=== PATIENT | female | born 1990 | race Caucasian/White ===

== ENCOUNTER 2018-07-31 17:36 | Inpatient (IN) | payer OTHER ==
[2018-07-31] MEDS ORDERED: Nalbuphine 20 MG/ML 1 ML Syringe IVPUSH PRN (17:53)
[2018-07-31] MEDS ORDERED: Sodium Chloride 0.9% 10 ML Syringe FLUSH PRN (17:53)
[2018-07-31] MEDS ORDERED: Ondansetron 4 MG/2 ML SDV IVPUSH PRN ×2 (17:53→18:37)
[2018-07-31] MEDS ORDERED: Oxytocin/Lactated Ringers 10 UNIT/1,000 ML BAG IV SCH (18:00)
[2018-07-31] MEDS: Lactated Ringers 1,000 ML IV SCH ×4 (18:30→20:29)
[2018-07-31] MEDS ORDERED: fentaNYL 100 MCG/2 ML SDV EPIDUR PRN (18:37)
[2018-07-31] MEDS ORDERED: ePHEDrine 50 MG/ML SDV IVPUSH PRN (18:37)
--- NOTE | 2018-07-31 18:41 | PCM.PREANE ---
Preanesthetic Assessment - Anesthesia/Transfusion/Family Hx Anesthesia History: Prior Anesthesia Without Reaction Family History of Anesthesia Reaction: No Transfusion History: No Prior Transfusion(s) Intubation History: Unknown - Review of Systems General: No Symptoms Pulmonary: No Symptoms Cardiovascular: No Symptoms Gastrointestinal: No Symptoms, Constipation Neurological: No Symptoms Other: Reports: None - Physical Assessment NPO Status Date: 07/31/18 NPO Status Time: 19:20 Pulse: 91 O2 Sat by Pulse Oximetry: 99 Respiratory Rate: 20 Blood Pressure: 142/92 Temperature: 36.5 C Height: 1.65 m Weight: 79.832 kg ASA Class: 2 Mental Status: Alert & Oriented x3 Airway Class: Mallampati = 1 Dentition: Reports: Normal Dentition, Caries Thyro-Mental Finger Breadths: 3 Mouth Opening Finger Breadths: 3 ROM/Head Extension: Full Lungs: Clear to Auscultation, Normal Respiratory Effort Cardiovascular: Regular Rate, Regular Rhythm, No Murmurs - Lab Values: Laboratory Last Values WBC 12.68 K/mm3 (3.98-10.04) H 07/31/18 18:06 RBC 4.44 M/mm3 (3.98-5.22) 07/31/18 18:06 Hgb 12.9 gm/L (11.2-15.7) 07/31/18 18:06 Hct 38.1 % (34.1-44.9) 07/31/18 18:06 MCV 85.8 fl (79.4-94.8) 07/31/18 18:06 MCH 29.1 pg (25.6-32.2) 07/31/18 18:06 MCHC 33.9 g/dl (32.2-35.5) 07/31/18 18:06 RDW Std Deviation 37.3 fL (36.4-46.3) 07/31/18 18:06 Plt Count 324 K/mm3 (182-369) 07/31/18 18:06 MPV 11.0 fl (9.4-12.3) 07/31/18 18:06 Neut % (Auto) 71.2 % (34.0-71.1) H 07/31/18 18:06 Lymph % (Auto) 19.8 % (19.3-51.7) 07/31/18 18:06 [place] % (Auto) 7.9 % (4.7-12.5) 07/31/18 18:06 Eos % (Auto) 0.6 (0.7-5.8) L 07/31/18 18:06 Baso % (Auto) 0.2 % (0.1-1.2) 07/31/18 18:06 Neut # (Auto) 9.03 K/mm3 (1.56-6.13) H 07/31/18 18:06 Lymph # (Auto) 2.51 K/mm3 (1.18-3.74) 07/31/18 18:06 [place] # (Auto) 1.00 K/mm3 (0.24-0.36) H 07/31/18 18:06 Eos # (Auto) 0.07 K/mm3 (0.04-0.36) 07/31/18 18:06 Baso # (Auto) 0.03 K/mm3 (0.01-0.08) 07/31/18 18:06 Above labs reviewed and noted and within acceptable ranges to proceed with epidural. 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: - Past Surgical History HEENT Surgical History: Reports: Tonsillectomy - HOME MEDS Home Medications: Home Meds Lansoprazole [Prevacid] 06/20/16 [History] Vit 90/Iron Fum/Folic [ Formula] 1 tab PO DAILY 06/20/16 [ History] Acetaminophen [Tylenol] 650 mg PO Q4H PRN #0 tablet 06/21/16 [Rx] Docusate Sodium [Colace] 100 mg PO BID PRN #0 cap 06/21/16 [Rx] Ibuprofen [IJD: Ibuprofen] 600 mg PO Q4H PRN #0 tablet 06/21/16 [Rx] - CURRENT (IN HOUSE) MEDS Current Meds: Current Medications Ephedrine Sulfate (Ephedrine Sulfate) 5 mg IVPUSH ASDIRECTED PRN PRN Reason: Hypotension Fentanyl (Sublimaze) 100 mcg EPIDUR Q3H PRN PRN Reason: Pain Fentanyl/Bupivacaine HCl (Fentanyl/Bupivacaine/Ns 2 Mcg-0.125% 100 Ml) 100 ml EPIDUR ASDIRECTED RUDY Lactated Ringer's (Ringers, Lactated) 1,000 mls @ 100 mls/hr IV ASDIRECTED RUDY Oxytocin/Lactated Ringer's (Pitocin In Lr 10 Units/1,000 Ml) 10 unit in 1,000 mls @ 500 mls/hr IV .CONTINUOUS RUDY Phenylephrine HCl 1 mg/ Sodium (Chloride) 10.1 mls @ 1 mls/sec IV TITRATE RUDY; Protocol Nalbuphine HCl (Nubain) 10 mg IVPUSH Q2H PRN PRN Reason: pain Ondansetron HCl (Zofran) 4 mg IVPUSH Q4H PRN PRN Reason: Nausea/Vomiting Ondansetron HCl (Zofran) 4 mg IVPUSH ONETIME PRN PRN Reason: Nausea/Vomiting Sodium Chloride (Saline Flush) 10 ml FLUSH ASDIRECTED PRN PRN Reason: Keep Vein Open
[2018-07-31] MEDS ORDERED: Bupivacaine/fentaNYL/NS 100 ML Bag EPIDUR SCH (18:45)
[2018-07-31] MEDS ORDERED: Phenylephrine 1 MG in Sodium Chloride 0.9% 10 ML IV SCH (18:45)
--- NOTE | 2018-07-31 18:59 | PCM.LDHP ---
L&D History of Present Illness - General Date of Service: 07/31/18 Admit Problem/Dx: Patient Status Order with Admit Dx/Problem 07/31/18 17:54 Patient Status [ADT] Routine Admission Diagnosis/Problem Admission Diagnosis/Problem Normal labor Source of Information: Patient History Limitations: Reports: No Limitations - History of Present Illness Introduction:: Patient is a 28 y/o at 37 4/7 wks who presents today in labor/SROM. 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 Para: 1 LMP (Approximate): Endocrine/Metabolic History: Reports: Other (See Below) (Failed 1hr - did not complete 3hr testing) - Past Surgical History HEENT Surgical History: Reports: Tonsillectomy Social & Family History - Family History Family Medical History: Noncontributory - Tobacco Use Smoking Status *Q: Former Smoker Used Tobacco, but Quit: Yes Month/Year Tobacco Last Used: 2011 Second Hand Smoke Exposure: No - Alcohol Use Alcohol Use History: No - Recreational Drug Use Recreational Drug Use: No H&P Review of Systems - Review of Systems: Review Of Systems: See Below General: Reports: No Symptoms Pulmonary: Reports: No Symptoms Cardiovascular: Reports: No Symptoms Gastrointestinal: Reports: No Symptoms Genitourinary: Reports: No Symptoms Musculoskeletal: Reports: No Symptoms L&D Exam - Exam Exam: See Below - Vital Signs Weight: 84.368 kg - OB Specific Contraction Intensity: Moderate Movement: Active Heart Tones: Present Heart Tones per Min: 125 Heart Rate (FHR) Variability: Moderate (6-25 bmp) Presentation: Vertex - Elkins Score Elkins Score Dilation: 3-4 cm (per nursing) - Exam General: Alert, Oriented, Cooperative Lungs: Clear to Auscultation, Normal Respiratory Effort Cardiovascular: Regular Rate, Regular Rhythm GI/Abdominal Exam: Soft, Non-Tender Genitourinary: Normal external exam Extremities: Normal Inspection Skin: Warm, Dry, Intact - Patient Data Lab Results Last 24 hrs: Laboratory Results - last 24 hr 07/31/18 Range/Units 18:06 WBC 12.68 H (3.98-10.04) K/mm3 RBC 4.44 (3.98-5.22) M/mm3 Hgb 12.9 (11.2-15.7) gm/L Hct 38.1 (34.1-44.9) % MCV 85.8 (79.4-94.8) fl MCH 29.1 (25.6-32.2) pg MCHC 33.9 (32.2-35.5) g/dl RDW Std Deviation 37.3 (36.4-46.3) fL Plt Count 324 (182-369) K/mm3 MPV 11.0 (9.4-12.3) fl Neut % (Auto) 71.2 H (34.0-71.1) % Lymph % (Auto) 19.8 (19.3-51.7) % [place] % (Auto) 7.9 (4.7-12.5) % Eos % (Auto) 0.6 L (0.7-5.8) Baso % (Auto) 0.2 (0.1-1.2) % Neut # (Auto) 9.03 H (1.56-6.13) K/mm3 Lymph # (Auto) 2.51 (1.18-3.74) K/mm3 [place] # (Auto) 1.00 H (0.24-0.36) K/mm3 Eos # (Auto) 0.07 (0.04-0.36) K/mm3 Baso # (Auto) 0.03 (0.01-0.08) K/mm3 Result Diagrams: 07/31/18 18:06 - Problem List (1) 37 weeks gestation of SNOMED Code(s): 93601161 ICD Code: Z3A.37 - 37 WEEKS GESTATION OF Status: Acute Current Visit: Yes (2) SROM (spontaneous rupture of membranes) SNOMED Code(s): 252646997 ICD Code: AWH2187 - Status: Acute Current Visit: Yes Problem List Initiated/Reviewed/Updated: Yes Orders Last 24hrs: Active Orders 24 hr Category Date Time Status Patient Status [ADT] Routine ADT 07/31/18 17:54 Active Activity as Tolerated [RC] PFP Care 07/31/18 17:53 Active Communication Order [RC] ASDIRECTED Care 07/31/18 17:53 Active Heart Tones [RC] ASDIRECTED Care 07/31/18 17:54 Active Non Stress Test [RC] PER UNIT ROUTINE Care 07/31/18 17:53 Active Notify Provider [RC] ASDIRECTED Care 07/31/18 18:37 Active Notify Provider [RC] PFP Care 07/31/18 17:53 Active Notify Provider [RC] PRN Care 07/31/18 17:53 Active Oxygen Therapy [RC] ASDIRECTED Care 07/31/18 18:37 Active Peripheral IV Care [RC] . DIRECTED Care 07/31/18 17:54 Active Pulse Oximetry [RC] ASDIRECTED Care 07/31/18 18:37 Active Pump Management, Intrathecal [RC] ASDIRECTED Care 07/31/18 17:55 Active Urinary Catheter Assessment [RC] ASDIRECTED Care 07/31/18 17:53 Active Vital Signs [RC] PER UNIT ROUTINE Care 07/31/18 17:53 Active Regular Diet [DIET] Diet 07/31/18 Dinner Active RAPID PLASMA REAGIN,RPR [CHEM] Routine Lab 07/31/18 18:06 Received TYPE AND SCREEN [BBK] Stat Lab 07/31/18 18:06 Received Bupivacaine/fentaNYL/NS [fentaNYL/Bupivacaine/NS 2 MCG- Med 07/31/18 18:45 Active 0.125% 100 ML] 100 ml EPIDUR ASDIRECTED Lactated Ringers [Ringers, Lactated] 1,000 ml Med 07/31/18 18:00 Active IV ASDIRECTED Nalbuphine [Nubain] Med 07/31/18 17:53 Active 10 mg IVPUSH Q2H PRN Ondansetron [Zofran] Med 07/31/18 18:37 Active 4 mg IVPUSH ONETIME PRN Ondansetron [Zofran] Med 07/31/18 17:53 Active 4 mg IVPUSH Q4H PRN Oxytocin/Lactated Ringers [Pitocin in LR 10 Units/1,000 Med 07/31/18 18:00 Active ML] 10 unit in 1,000 ml IV .CONTINUOUS Phenylephrine [[place]-Synephrine] 1 mg Med 07/31/18 18:45 Active Sodium Chloride 0.9% [Normal Saline] 10 ml IV TITRATE Sodium Chloride 0.9% [Saline Flush] Med 07/31/18 17:53 Active 10 ml FLUSH ASDIRECTED PRN ePHEDrine [ePHEDrine Sulfate] Med 07/31/18 18:37 Active 5 mg IVPUSH ASDIRECTED PRN fentaNYL [Sublimaze] Med 07/31/18 18:37 Active 100 mcg EPIDUR Q3H PRN Electronic Heart Tones Ext w TOCO [WOMSER] Oth 07/31/18 17:53 Ordered Routine Electronic Heart Tones Internal [WOMSER] Per Unit Oth 07/31/18 17:53 Ordered Routine Peripheral IV Insertion Adult [OM.PC] Routine Oth 07/31/18 17:53 Ordered Resuscitation Status Routine Resus Stat 07/31/18 17:53 Ordered Medication Orders Ephedrine Sulfate (Ephedrine Sulfate) 5 mg IVPUSH ASDIRECTED PRN PRN Reason: Hypotension Fentanyl (Sublimaze) 100 mcg EPIDUR Q3H PRN PRN Reason: Pain Fentanyl/Bupivacaine HCl (Fentanyl/Bupivacaine/Ns 2 Mcg-0.125% 100 Ml) 100 ml EPIDUR ASDIRECTED RUDY Lactated Ringer's (Ringers, Lactated) 1,000 mls @ 100 mls/hr IV ASDIRECTED RUDY Oxytocin/Lactated Ringer's (Pitocin In Lr 10 Units/1,000 Ml) 10 unit in 1,000 mls @ 500 mls/hr IV .CONTINUOUS RUDY Phenylephrine HCl 1 mg/ Sodium (Chloride) 10.1 mls @ 1 mls/sec IV TITRATE RUDY; Protocol Nalbuphine HCl (Nubain) 10 mg IVPUSH Q2H PRN PRN Reason: pain Ondansetron HCl (Zofran) 4 mg IVPUSH Q4H PRN PRN Reason: Nausea/Vomiting Ondansetron HCl (Zofran) 4 mg IVPUSH ONETIME PRN PRN Reason: Nausea/Vomiting Sodium Chloride (Saline Flush) 10 ml FLUSH ASDIRECTED PRN PRN Reason: Keep Vein Open Assessment/Plan Comment:: 28 y/o at 37 4/7 wks presents with labor/srom * Labs on admission * GBS negative, no need for antibiotics * Epidural per patient preference * Anticipate
[2018-07-31] MEDS ORDERED: Bupivacaine 0.25% 10 ML SDV ONE (22:00)
--- NOTE | 2018-07-31 22:21 | PCM.PNLD ---
Labor Progress Note - VS & Meds Vital Signs: Last Vital Signs Temp 36.5 C 07/31/18 18:56 Pulse 78 07/31/18 19:00 Resp 20 07/31/18 18:56 BP 142/92 H 07/31/18 18:56 Pulse Ox 100 07/31/18 19:00 Active Medications: Current Medications Ephedrine Sulfate (Ephedrine Sulfate) 5 mg IVPUSH ASDIRECTED PRN PRN Reason: Hypotension Fentanyl (Sublimaze) 100 mcg EPIDUR Q3H PRN PRN Reason: Pain Last Admin: 07/31/18 18:57 Dose: 100 mcg Fentanyl/Bupivacaine HCl (Fentanyl/Bupivacaine/Ns 2 Mcg-0.125% 100 Ml) 100 ml EPIDUR ASDIRECTED RUDY Last Admin: 07/31/18 18:57 Dose: 100 ml Lactated Ringer's (Ringers, Lactated) 1,000 mls @ 100 mls/hr IV ASDIRECTED RUDY Last Admin: 07/31/18 20:29 Dose: 999 mls/hr Oxytocin/Lactated Ringer's (Pitocin In Lr 10 Units/1,000 Ml) 10 unit in 1,000 mls @ 500 mls/hr IV .CONTINUOUS RUDY Phenylephrine HCl 1 mg/ Sodium (Chloride) 10.1 mls @ 1 mls/sec IV TITRATE RUDY; Protocol Nalbuphine HCl (Nubain) 10 mg IVPUSH Q2H PRN PRN Reason: pain Ondansetron HCl (Zofran) 4 mg IVPUSH Q4H PRN PRN Reason: Nausea/Vomiting Ondansetron HCl (Zofran) 4 mg IVPUSH ONETIME PRN PRN Reason: Nausea/Vomiting Sodium Chloride (Saline Flush) 10 ml FLUSH ASDIRECTED PRN PRN Reason: Keep Vein Open - Uterine Contractions Uterine Monitoring Mode: External [place] Contraction Intensity: Moderate - Monitoring Monitor Mode: External Ultrasound Heart Rate (FHR) Baseline: 140 Heart Rate (FHR) Variability: Moderate (6-25 bmp) Accelerations: Present, 15x15 Decelerations: None Strip Review: Category I - Vaginal Exam Dilation (cm): 5-6 Effacement (Percent): 90 Station: 0 Cervical Position: Midposition - Labor Progress (Free Text) Labor Progress: Doing well. Comfortable with epidural. Continue present management
--- NOTE | 2018-08-01 00:19 | PCM.DEL ---
L & D Note - General Info Date of Service: 08/01/18 - Delivery Note Labor: Spontaneous Delivery Outcome: Livebirth Delivery Method: Spontaneous Vaginal Delivery-Single Delivery Mode: Spontaneous Presentation: Left Occiput Anterior (YAYA) Nuchal Cord: Present (Tight, not able to be reduced) Anesthesia Type: Epidural Amniotic Fluid Description: Clear Episiotomy Type: None Laceration: None Placenta: Intact, Spontaneous Cord: 3 Vessels Estimated Blood Loss: 300 Resuscitation Needed: Yes : Bulb Syringe, Stimulated, Warmed, [place] Used, Warmer Used Score 1 min: 9 Score 5 min: 9 Delivery Comments (Free Text/Narrative):: Patient found to be complete and began pushing. With maternal pushing effort head delivered from an YAYA presentation. Tight nuchal cord present. Not able to be reduced. With gentle downward traction the shoulders and body delivered. Infant placed on maternal abdomen. Cord clamped and cut. Cord blood obtained. Placenta allowed time to separate and expelled intact. Inspection of the perineum showed no lacerations - General Info Date of Service: 07/31/18 - Patient Data Vitals - Most Recent: Last Vital Signs Temp 36.5 C 07/31/18 18:56 Pulse 78 07/31/18 19:00 Resp 20 07/31/18 18:56 BP 142/92 H 07/31/18 18:56 Pulse Ox 100 07/31/18 19:00 Weight - Most Recent: 84.368 kg I&O - Last 24 Hours: Intake & Output 07/31/18 07/31/18 08/01/18 14:59 22:59 06:59 Intake Total 2000 250 Output Total 700 Balance 2000 -450 Lab Results Last 24 Hours: Laboratory Results - last 24 hr 07/31/18 07/31/18 Range/Units 18:06 18:06 WBC 12.68 H (3.98-10.04) K/mm3 RBC 4.44 (3.98-5.22) M/mm3 Hgb 12.9 (11.2-15.7) gm/L Hct 38.1 (34.1-44.9) % MCV 85.8 (79.4-94.8) fl MCH 29.1 (25.6-32.2) pg MCHC 33.9 (32.2-35.5) g/dl RDW Std Deviation 37.3 (36.4-46.3) fL Plt Count 324 (182-369) K/mm3 MPV 11.0 (9.4-12.3) fl Neut % (Auto) 71.2 H (34.0-71.1) % Lymph % (Auto) 19.8 (19.3-51.7) % [place] % (Auto) 7.9 (4.7-12.5) % Eos % (Auto) 0.6 L (0.7-5.8) Baso % (Auto) 0.2 (0.1-1.2) % Neut # (Auto) 9.03 H (1.56-6.13) K/mm3 Lymph # (Auto) 2.51 (1.18-3.74) K/mm3 [place] # (Auto) 1.00 H (0.24-0.36) K/mm3 Eos # (Auto) 0.07 (0.04-0.36) K/mm3 Baso # (Auto) 0.03 (0.01-0.08) K/mm3 Blood Type O POSITIVE Gel Antibody Screen Negative Med Orders - Current: Current Medications Ephedrine Sulfate (Ephedrine Sulfate) 5 mg IVPUSH ASDIRECTED PRN PRN Reason: Hypotension Fentanyl (Sublimaze) 100 mcg EPIDUR Q3H PRN PRN Reason: Pain Last Admin: 07/31/18 18:57 Dose: 100 mcg Fentanyl/Bupivacaine HCl (Fentanyl/Bupivacaine/Ns 2 Mcg-0.125% 100 Ml) 100 ml EPIDUR ASDIRECTED RUDY Last Admin: 07/31/18 18:57 Dose: 100 ml Lactated Ringer's (Ringers, Lactated) 1,000 mls @ 100 mls/hr IV ASDIRECTED RUDY Last Admin: 07/31/18 20:29 Dose: 999 mls/hr Oxytocin/Lactated Ringer's (Pitocin In Lr 10 Units/1,000 Ml) 10 unit in 1,000 mls @ 500 mls/hr IV .CONTINUOUS RUDY Last Admin: 07/31/18 23:48 Dose: 500 mls/hr Phenylephrine HCl 1 mg/ Sodium (Chloride) 10.1 mls @ 1 mls/sec IV TITRATE RUDY; Protocol Nalbuphine HCl (Nubain) 10 mg IVPUSH Q2H PRN PRN Reason: pain Ondansetron HCl (Zofran) 4 mg IVPUSH Q4H PRN PRN Reason: Nausea/Vomiting Ondansetron HCl (Zofran) 4 mg IVPUSH ONETIME PRN PRN Reason: Nausea/Vomiting Sodium Chloride (Saline Flush) 10 ml FLUSH ASDIRECTED PRN PRN Reason: Keep Vein Open - Problem List & Annotations (1) 37 weeks gestation of SNOMED Code(s): 89437922 Code(s): Z3A.37 - 37 WEEKS GESTATION OF Status: Acute Current Visit: Yes (2) SROM (spontaneous rupture of membranes) SNOMED Code(s): 419477763 Code(s): PWJ6479 - Status: Acute Current Visit: Yes - Problem List Review Problem List Initiated/Reviewed/Updated: Yes - My Orders Last 24 Hours: My Active Orders 07/31/18 17:53 Activity as Tolerated [RC] PFP Communication Order [RC] ASDIRECTED Notify Provider [RC] PFP Notify Provider [RC] PRN Urinary Catheter Assessment [RC] ASDIRECTED Vital Signs [RC] PER UNIT ROUTINE Nalbuphine [Nubain] 10 mg IVPUSH Q2H PRN Ondansetron [Zofran] 4 mg IVPUSH Q4H PRN Sodium Chloride 0.9% [Saline Flush] 10 ml FLUSH ASDIRECTED PRN Electronic Heart Tones Ext w TOCO [WOMSER] Routine Electronic Heart Tones Internal [WOMSER] Per Unit Routine Peripheral IV Insertion Adult [OM.PC] Routine Resuscitation Status Routine 07/31/18 17:54 Patient Status [ADT] Routine Peripheral IV Care [RC] . DIRECTED 07/31/18 17:55 Pump Management, Intrathecal [RC] ASDIRECTED 07/31/18 18:00 Lactated Ringers [Ringers, Lactated] 1,000 ml IV ASDIRECTED Oxytocin/Lactated Ringers [Pitocin in LR 10 Units/1,000 ML] 10 unit in 1,000 ml IV .CONTINUOUS 07/31/18 18:06 RAPID PLASMA REAGIN,RPR [CHEM] Routine 07/31/18 Dinner Regular Diet [DIET] - Assessment Assessment:: 28 y/o G2 now P2002 PPD#0 from - Plan Plan:: * Routine cares * Encourage breast feeding * Discharge home in 1-2 days
[2018-08-01] MEDS ORDERED: Docusate Sodium 100 MG Cap PO PRN (01:02)
[2018-08-01] MEDS ORDERED: Acetaminophen 325 MG Tab PO PRN (01:02)
[2018-08-01] MEDS ORDERED: Lanolin 100% Cream 7 GM Tube TOP PRN (01:02)
[2018-08-01] MEDS ORDERED: Witch Hazel Medicated Pads 100/Jar TOP PRN (01:02)
[2018-08-01] MEDS ORDERED: Benzocaine/Menthol 20%-0.5% Spray 56 GM Canister TOP PRN (01:02)
[2018-08-01] MEDS: Ibuprofen 600 MG Tab PO PRN ×4 (01:18→20:40)
--- NOTE | 2018-08-01 07:10 | PCM.PNPP ---
- General Info Date of Service: 08/01/18 Functional Status: Reports: Pain Controlled, Tolerating Diet, Ambulating, Urinating - Review of Systems General: Reports: No Symptoms Pulmonary: Reports: No Symptoms Cardiovascular: Reports: No Symptoms Gastrointestinal: Reports: No Symptoms Genitourinary: Reports: No Symptoms Musculoskeletal: Reports: No Symptoms Neurological: Reports: No Symptoms - Patient Data Vital Signs - Most Recent: Last Vital Signs Temp 36.7 C 08/01/18 04:58 Pulse 75 08/01/18 04:58 Resp 15 08/01/18 04:58 BP 120/67 08/01/18 04:58 Pulse Ox 99 08/01/18 04:58 Weight - Most Recent: 84.368 kg I&O - Last 24 Hours: Intake & Output 07/31/18 08/01/18 08/01/18 22:59 06:59 14:59 Intake Total 2000 250 Output Total 700 Balance 2000 -450 Lab Results - Last 24 Hours: Laboratory Results - last 24 hr 07/31/18 07/31/18 Range/Units 18:06 18:06 WBC 12.68 H (3.98-10.04) K/mm3 RBC 4.44 (3.98-5.22) M/mm3 Hgb 12.9 (11.2-15.7) gm/L Hct 38.1 (34.1-44.9) % MCV 85.8 (79.4-94.8) fl MCH 29.1 (25.6-32.2) pg MCHC 33.9 (32.2-35.5) g/dl RDW Std Deviation 37.3 (36.4-46.3) fL Plt Count 324 (182-369) K/mm3 MPV 11.0 (9.4-12.3) fl Neut % (Auto) 71.2 H (34.0-71.1) % Lymph % (Auto) 19.8 (19.3-51.7) % [place] % (Auto) 7.9 (4.7-12.5) % Eos % (Auto) 0.6 L (0.7-5.8) Baso % (Auto) 0.2 (0.1-1.2) % Neut # (Auto) 9.03 H (1.56-6.13) K/mm3 Lymph # (Auto) 2.51 (1.18-3.74) K/mm3 [place] # (Auto) 1.00 H (0.24-0.36) K/mm3 Eos # (Auto) 0.07 (0.04-0.36) K/mm3 Baso # (Auto) 0.03 (0.01-0.08) K/mm3 Blood Type O POSITIVE Gel Antibody Screen Negative Med Orders - Current: Current Medications Acetaminophen (Tylenol) 650 mg PO Q4H PRN PRN Reason: mild pain or fever Last Admin: 08/01/18 05:01 Dose: 650 mg Benzocaine/Menthol (Dermoplast Pain Relief [place]) 0 gm TOP ASDIRECTED PRN PRN Reason: Perineal Comfort Measure Last Admin: 08/01/18 01:49 Dose: 1 canister Docusate Sodium (Colace) 100 mg PO BID PRN PRN Reason: Constipation Emollient Ointment (Lansinoh Hpa) 0 gm TOP ASDIRECTED PRN PRN Reason: Sore Nipples Ibuprofen (Motrin) 600 mg PO Q6H PRN PRN Reason: Mild pain or fever Last Admin: 08/01/18 01:18 Dose: 600 mg [place] (Tucks) 1 pad TOP ASDIRECTED PRN PRN Reason: Hemorrhoid pain Discontinued Medications Ephedrine Sulfate (Ephedrine Sulfate) 5 mg IVPUSH ASDIRECTED PRN PRN Reason: Hypotension Fentanyl (Sublimaze) 100 mcg EPIDUR Q3H PRN PRN Reason: Pain Last Admin: 07/31/18 18:57 Dose: 100 mcg Fentanyl/Bupivacaine HCl (Fentanyl/Bupivacaine/Ns 2 Mcg-0.125% 100 Ml) 100 ml EPIDUR ASDIRECTED RUDY Last Admin: 07/31/18 18:57 Dose: 100 ml Lactated Ringer's (Ringers, Lactated) 1,000 mls @ 100 mls/hr IV ASDIRECTED RUDY Last Admin: 07/31/18 20:29 Dose: 999 mls/hr Oxytocin/Lactated Ringer's (Pitocin In Lr 10 Units/1,000 Ml) 10 unit in 1,000 mls @ 500 mls/hr IV .CONTINUOUS RUDY Last Admin: 07/31/18 23:48 Dose: 500 mls/hr Phenylephrine HCl 1 mg/ Sodium (Chloride) 10.1 mls @ 1 mls/sec IV TITRATE RUDY; Protocol Nalbuphine HCl (Nubain) 10 mg IVPUSH Q2H PRN PRN Reason: pain Ondansetron HCl (Zofran) 4 mg IVPUSH Q4H PRN PRN Reason: Nausea/Vomiting Ondansetron HCl (Zofran) 4 mg IVPUSH ONETIME PRN PRN Reason: Nausea/Vomiting Sodium Chloride (Saline Flush) 10 ml FLUSH ASDIRECTED PRN PRN Reason: Keep Vein Open - Infant Interaction Infant Disposition, : in Room with Family Interaction: Holding Infant Infant Feeding: Breastfed ; Nursed Well Support Person: - Recovery Exam Fundal Tone: Firm Fundal Level: At Umbilicus Fundal Placement: Midline Lochia Amount: Small Lochia Color: Rubra/Red Perineum Description: Intact, Minimal Bruising/Swelling Bladder Status: Voiding Urinary Elimination: Voided - Exam General: Alert, Oriented, Cooperative GI/Abdominal Exam: Soft, Non-Tender Extremities: Normal Inspection Skin: Warm, Dry, Intact - Problem List & Annotations (1) 37 weeks gestation of SNOMED Code(s): 95460499 Code(s): Z3A.37 - 37 WEEKS GESTATION OF Status: Acute Current Visit: Yes (2) SROM (spontaneous rupture of membranes) SNOMED Code(s): 952918063 Code(s): KUQ1051 - Status: Acute Current Visit: Yes - Problem List Review Problem List Initiated/Reviewed/Updated: Yes - My Orders Last 24 Hours: My Active Orders 07/31/18 17:53 Resuscitation Status Routine 07/31/18 18:06 RAPID PLASMA REAGIN,RPR [CHEM] Routine 08/01/18 01:02 Activity as Tolerated [RC] PER UNIT ROUTINE Vital Signs [RC] 03,09,15,21 Acetaminophen [Tylenol] 650 mg PO Q4H PRN Benzocaine/Menthol [Dermoplast Pain Relief [place]] See Dose Instructions TOP ASDIRECTED PRN Docusate Sodium [Colace] 100 mg PO BID PRN Ibuprofen [Motrin] 600 mg PO Q6H PRN Lanolin [Lansinoh HPA] See Dose Instructions TOP ASDIRECTED PRN [place] [Tucks] 1 pad TOP ASDIRECTED PRN Assess Lochia [WOMSER] Per Unit Routine Assess Uterine Involution [WOMSER] Per Unit Routine Breast Pump [WOMSER] Per Unit Routine Heat Therapy [OM.PC] PRN Ice Therapy [OM.PC] Per Unit Routine Perineal Care [OM.PC] Per Unit Routine Peripheral IV Discontinue [OM.PC] Routine Sitz Bath [OM.PC] Per Unit Routine 08/01/18 Breakfast Regular Diet [DIET] 08/02/18 01:02 Heat Therapy [OM.PC] PRN - Assessment Assessment:: 28 y/o G2 now P2002 PPD#1 from - Plan Plan:: * Routine cares * Encourage breast feeding * Discharge home tomorrow
--- NOTE | 2018-08-01 08:34 | PCM48HPAN ---
Post Anesthesia Note - EVALUATION WITHIN 48HRS OF ANESTHETIC Vital Signs in Normal Range: Yes Patient Participated in Evaluation: Yes Respiratory Function Stable: Yes Airway Patent: Yes Cardiovascular Function Stable: Yes Hydration Status Stable: Yes Pain Control Satisfactory: Yes Nausea and Vomiting Control Satisfactory: Yes Mental Status Recovered: Yes
--- NOTE | 2018-08-02 00:03 | PCM.DCSUM1 ---
Discharge Summary - Discharge Data Discharge Date: 08/02/18 Discharge Disposition: Home, Self-Care 01 Condition: Good - Discharge Diagnosis/Problem(s) (1) 37 weeks gestation of SNOMED Code(s): 67864197 ICD Code: Z3A.37 - 37 WEEKS GESTATION OF Status: Acute Current Visit: Yes (2) SROM (spontaneous rupture of membranes) SNOMED Code(s): 300430342 ICD Code: [id number] - Status: Acute Current Visit: Yes (3) Vaginal delivery SNOMED Code(s): 807750394 ICD Code: O80 - ENCOUNTER FOR FULL-TERM UNCOMPLICATED DELIVERY Status: Acute Current Visit: No - Patient Summary/Data Complications: None Consults: None Recommended Follow-up Testing/Procedures: Follow up in [address] Pedro [facility] Course: Patient is a 28 y/o who presented at 37 4/7 wks with SROM/Labor. She progressed well to complete dilation and underwent an uncomplicated . See delivery note. she did well and was discharged home on PPD#2 - Patient Instructions Diet: Regular Diet as Tolerated Activity: As Tolerated Activity, Other: Pelvic rest for 6 weeks Driving: May Drive Today Showering/Bathing: May Shower Showering/Bathing, Other: May Bathe Notify Provider of: Fever, Increased Pain, Swelling and Redness, Drainage, Nausea and/or Vomiting - Discharge Plan *PRESCRIPTION DRUG MONITORING PROGRAM REVIEWED*: Not Applicable *COPY OF PRESCRIPTION DRUG MONITORING REPORT IN PATIENT LIZ: Not Applicable Home Medications: Home Meds Vit 90/Iron Fum/Folic [ Formula] 1 tab PO DAILY 06/20/16 [ History] Docusate Sodium [Colace] 100 mg PO BID PRN #0 cap 06/21/16 [Rx] Ibuprofen [IJD: Ibuprofen] 600 mg PO Q4H PRN #0 tablet 06/21/16 [Rx] Referrals: Michael Pedro MD [Physician] - (2 weeks for post check ) - Discharge Summary/Plan Comment DC Time >30 min.: No - Patient Data Vitals - Most Recent: Last Vital Signs Temp 36.7 C 08/01/18 15:23 Pulse 88 08/01/18 15:23 Resp 14 08/01/18 15:23 BP 117/66 08/01/18 15:23 Pulse Ox 99 08/01/18 15:23 Weight - Most Recent: 84.368 kg I&O - Last 24 hours: Intake & Output 08/01/18 08/01/18 08/02/18 14:59 22:59 06:59 Intake Total 120 180 Balance 120 180 Lab Results - Last 24 hrs: Laboratory Results - last 24 hr 07/31/18 Range/Units 18:06 RPR Non-reactive (NONREACTIVE) Med Orders - Current: Current Medications Acetaminophen (Tylenol) 650 mg PO Q4H PRN PRN Reason: mild pain or fever Last Admin: 08/01/18 05:01 Dose: 650 mg Benzocaine/Menthol (Dermoplast Pain Relief [place]) 0 gm TOP ASDIRECTED PRN PRN Reason: Perineal Comfort Measure Last Admin: 08/01/18 01:49 Dose: 1 canister Docusate Sodium (Colace) 100 mg PO BID PRN PRN Reason: Constipation Emollient Ointment (Lansinoh Hpa) 0 gm TOP ASDIRECTED PRN PRN Reason: Sore Nipples Ibuprofen (Motrin) 600 mg PO Q6H PRN PRN Reason: Mild pain or fever Last Admin: 08/01/18 20:40 Dose: 600 mg Witch Aida (Tucks) 1 pad TOP ASDIRECTED PRN PRN Reason: Hemorrhoid pain Discontinued Medications Ephedrine Sulfate (Ephedrine Sulfate) 5 mg IVPUSH ASDIRECTED PRN PRN Reason: Hypotension Fentanyl (Sublimaze) 100 mcg EPIDUR Q3H PRN PRN Reason: Pain Last Admin: 07/31/18 18:57 Dose: 100 mcg Fentanyl/Bupivacaine HCl (Fentanyl/Bupivacaine/Ns 2 Mcg-0.125% 100 Ml) 100 ml EPIDUR ASDIRECTED RUDY Last Admin: 07/31/18 18:57 Dose: 100 ml Lactated Ringer's (Ringers, Lactated) 1,000 mls @ 100 mls/hr IV ASDIRECTED RUDY Last Admin: 07/31/18 20:29 Dose: 999 mls/hr Oxytocin/Lactated Ringer's (Pitocin In Lr 10 Units/1,000 Ml) 10 unit in 1,000 mls @ 500 mls/hr IV .CONTINUOUS RUDY Last Admin: 07/31/18 23:48 Dose: 500 mls/hr Phenylephrine HCl 1 mg/ Sodium (Chloride) 10.1 mls @ 1 mls/sec IV TITRATE RUDY; Protocol Nalbuphine HCl (Nubain) 10 mg IVPUSH Q2H PRN PRN Reason: pain Ondansetron HCl (Zofran) 4 mg IVPUSH Q4H PRN PRN Reason: Nausea/Vomiting Ondansetron HCl (Zofran) 4 mg IVPUSH ONETIME PRN PRN Reason: Nausea/Vomiting Sodium Chloride (Saline Flush) 10 ml FLUSH ASDIRECTED PRN PRN Reason: Keep Vein Open
--- NOTE | 2018-08-02 00:03 | PCM.PNPP ---
- General Info Date of Service: 08/02/18 Functional Status: Reports: Pain Controlled, Tolerating Diet, Ambulating, Urinating - Review of Systems General: Reports: No Symptoms Pulmonary: Reports: No Symptoms Cardiovascular: Reports: No Symptoms Gastrointestinal: Reports: No Symptoms Genitourinary: Reports: No Symptoms Musculoskeletal: Reports: No Symptoms - Patient Data Vital Signs - Most Recent: Last Vital Signs Temp 36.7 C 08/01/18 15:23 Pulse 88 08/01/18 15:23 Resp 14 08/01/18 15:23 BP 117/66 08/01/18 15:23 Pulse Ox 99 08/01/18 15:23 Weight - Most Recent: 84.368 kg I&O - Last 24 Hours: Intake & Output 08/01/18 08/01/18 08/02/18 14:59 22:59 06:59 Intake Total 120 180 Balance 120 180 Lab Results - Last 24 Hours: Laboratory Results - last 24 hr 07/31/18 Range/Units 18:06 RPR Non-reactive (NONREACTIVE) Med Orders - Current: Current Medications Acetaminophen (Tylenol) 650 mg PO Q4H PRN PRN Reason: mild pain or fever Last Admin: 08/01/18 05:01 Dose: 650 mg Benzocaine/Menthol (Dermoplast Pain Relief [place]) 0 gm TOP ASDIRECTED PRN PRN Reason: Perineal Comfort Measure Last Admin: 08/01/18 01:49 Dose: 1 canister Docusate Sodium (Colace) 100 mg PO BID PRN PRN Reason: Constipation Emollient Ointment (Lansinoh Hpa) 0 gm TOP ASDIRECTED PRN PRN Reason: Sore Nipples Ibuprofen (Motrin) 600 mg PO Q6H PRN PRN Reason: Mild pain or fever Last Admin: 08/01/18 20:40 Dose: 600 mg Witch Aida (Tucks) 1 pad TOP ASDIRECTED PRN PRN Reason: Hemorrhoid pain Discontinued Medications Ephedrine Sulfate (Ephedrine Sulfate) 5 mg IVPUSH ASDIRECTED PRN PRN Reason: Hypotension Fentanyl (Sublimaze) 100 mcg EPIDUR Q3H PRN PRN Reason: Pain Last Admin: 07/31/18 18:57 Dose: 100 mcg Fentanyl/Bupivacaine HCl (Fentanyl/Bupivacaine/Ns 2 Mcg-0.125% 100 Ml) 100 ml EPIDUR ASDIRECTED RUDY Last Admin: 07/31/18 18:57 Dose: 100 ml Lactated Ringer's (Ringers, Lactated) 1,000 mls @ 100 mls/hr IV ASDIRECTED RUDY Last Admin: 07/31/18 20:29 Dose: 999 mls/hr Oxytocin/Lactated Ringer's (Pitocin In Lr 10 Units/1,000 Ml) 10 unit in 1,000 mls @ 500 mls/hr IV .CONTINUOUS RUDY Last Admin: 07/31/18 23:48 Dose: 500 mls/hr Phenylephrine HCl 1 mg/ Sodium (Chloride) 10.1 mls @ 1 mls/sec IV TITRATE RUDY; Protocol Nalbuphine HCl (Nubain) 10 mg IVPUSH Q2H PRN PRN Reason: pain Ondansetron HCl (Zofran) 4 mg IVPUSH Q4H PRN PRN Reason: Nausea/Vomiting Ondansetron HCl (Zofran) 4 mg IVPUSH ONETIME PRN PRN Reason: Nausea/Vomiting Sodium Chloride (Saline Flush) 10 ml FLUSH ASDIRECTED PRN PRN Reason: Keep Vein Open - Interaction Disposition, : in Room with Family Interaction: Holding Infant Infant Feeding: Breastfed Infant; Nursed Well Support Person: - Recovery Exam Fundal Tone: Firm Fundal Level: 1 Fingerbreadths Below Umbilicus Fundal Placement: Midline Lochia Amount: Small Lochia Color: Rubra/Red Perineum Description: Intact, Minimal Bruising/Swelling Episiotomy/Laceration: None Bladder Status: Voiding Urinary Elimination: Voided - Exam General: Alert, Oriented, Cooperative GI/Abdominal Exam: Soft, Non-Tender Extremities: Normal Inspection Skin: Warm, Dry, Intact - Problem List & Annotations (1) 37 weeks gestation of SNOMED Code(s): 57820225 Code(s): Z3A.37 - 37 WEEKS GESTATION OF Status: Acute Current Visit: Yes (2) SROM (spontaneous rupture of membranes) SNOMED Code(s): 933408292 Code(s): PEQ2183 - Status: Acute Current Visit: Yes (3) Vaginal delivery SNOMED Code(s): 236955472 Code(s): O80 - ENCOUNTER FOR FULL-TERM UNCOMPLICATED DELIVERY Status: Acute Current Visit: No - Problem List Review Problem List Initiated/Reviewed/Updated: Yes - My Orders Last 24 Hours: My Active Orders 08/01/18 01:02 Activity as Tolerated [RC] PER UNIT ROUTINE Vital Signs [RC] ,,, Acetaminophen [Tylenol] 650 mg PO Q4H PRN Benzocaine/Menthol [Dermoplast Pain Relief [place]] See Dose Instructions TOP ASDIRECTED PRN Docusate Sodium [Colace] 100 mg PO BID PRN Ibuprofen [Motrin] 600 mg PO Q6H PRN Lanolin [Lansinoh HPA] See Dose Instructions TOP ASDIRECTED PRN Witch Aida [Tucks] 1 pad TOP ASDIRECTED PRN Assess Lochia [WOMSER] Per Unit Routine Assess Uterine Involution [WOMSER] Per Unit Routine Breast Pump [WOMSER] Per Unit Routine Heat Therapy [OM.PC] PRN Ice Therapy [OM.PC] Per Unit Routine Perineal Care [OM.PC] Per Unit Routine Peripheral IV Discontinue [OM.PC] Routine Sitz Bath [OM.PC] Per Unit Routine 08/01/18 Breakfast Regular Diet [DIET] 08/02/18 00:03 Ready for Discharge [RC] PER UNIT ROUTINE 08/02/18 01:02 Heat Therapy [OM.PC] PRN - Assessment Assessment:: 28 y/o G2 now P2002 PPD#2 from - Plan Plan:: * Routine cares * Encourage breast feeding * Discharge home today
[2018-08-02] MEDS: Ibuprofen 600 MG Tab PO PRN (02:41)
[2018-08-02 09:26] VITALS: BP 101/84
== END 2018-08-02 11:30 | disposition home or self-care (01) | DRG 775 ==
LOC: JD.OBCHECK 17:36 → JD.OB 17:54 → UNDOADMOB 17:54 → JD.OB 17:55 → OBSVTOIN 23:47 → JD.OB 23:48
PROVIDERS: ADMIT Obstetrics & Gynecology; ATTEND Obstetrics & Gynecology
PROC: 6A550ZT Pheresis of Cord Blood Stem Cells, Single (ICD-10-PCS; principal; 2018-07-31)
PROC: 10E0XZZ Delivery of Products of Conception, External Approach (ICD-10-PCS; principal; 2018-07-31)
PROC: 00HU33Z Insertion of Infusion Device into Spinal Canal, Percutaneous Approach (ICD-10-PCS; 2018-07-31)
PROC: 3E0R3BZ Introduction of Anesthetic Agent into Spinal Canal, Percutaneous Approach (ICD-10-PCS; 2018-07-31)
DX: O99.284 Endocrine, nutritional and metabolic diseases complicating childbirth (principal); Z3A.37 37 weeks gestation of pregnancy; Z37.0 Single live birth; Z87.891 Personal history of nicotine dependence; E73.9 Lactose intolerance, unspecified; O69.1XX0 Labor and delivery complicated by cord around neck, with compression, not applicable or unspecified
CPT/HCPCS: 36415; 51702; 59025; 59409; 85025; 86592; 86850; 86900; 86901; A9270-GY; J2590; J3010; J3490; J7120

== ENCOUNTER 2023-09-06 18:17 | Inpatient (IN) | payer OTHER ==
[2023-09-06] MEDS ORDERED: Lidocaine 1% 50 ML MDV INJECT ONE (18:26)
[2023-09-06] MEDS ORDERED: Sodium Chloride 0.9% 10 ML Syringe FLUSH PRN (18:26)
[2023-09-06] MEDS ORDERED: Ondansetron 4 MG/2 ML SDV IVPUSH PRN (18:26)
[2023-09-06] MEDS ORDERED: Lactated Ringers 1,000 ML IV SCH (18:30)
[2023-09-06 18:43] LABS: BASOPHILS ABSOLUTE AUTO 0.1 K/mm3 (0.0-0.2); BASOPHILS PERCENT AUTO 0.3 % (0.0-1.0); EOSINOPHILS ABSOLUTE AUTO 0.2 K/mm3 (0.0-0.4); EOSINOPHILS PERCENT AUTO 0.9 % (0.0-6.0); HEMATOCRIT 38.5 % (37.0-47.0); HEMOGLOBIN 12.7 gm/dl (12.0-16.0); IMMATURE GRAN ABSOLUTE AUTO 0.11 K/mm3 (0.00-0.05); IMMATURE GRAN PERCENT AUTO 0.6 % (0.0-0.4); LYMPHOCYTES ABSOLUTE AUTO 3.8 K/mm3 (1.0-4.8); LYMPHOCYTES PERCENT AUTO 21.5 % (24.0-44.0); MEAN CORPUSCULAR HEMOGLOBIN 29.3 pg (28.0-32.0); MEAN CORPUSCULAR VOLUME 88.7 fl (83.0-99.0); MEAN PLATELET VOLUME 10.2 fl (9.4-12.3); MONOCYTES ABSOLUTE AUTO 1.2 K/mm3 (0.0-0.8); MONOCYTES PERCENT AUTO 6.7 % (0.0-8.0); NEUTROPHILS ABSOLUTE AUTO 12.3 K/mm3 (1.8-7.7); PLATELET COUNT,PLT 357 K/mm3 (150-400); RED BLOOD CELL COUNT 4.34 M/mm3 (4.10-5.30); WHITE BLOOD CELL COUNT,WBC 17.64 K/mm3 (3.9-11.3)
[2023-09-06] MEDS ORDERED: Witch Hazel Medicated Pads 40/Jar TOP PRN (19:24)
[2023-09-06] MEDS ORDERED: Docusate Sodium 100 MG Cap PO PRN (19:24)
[2023-09-06] MEDS ORDERED: Benzocaine/Menthol 20%-0.5% Spray 78 GM Cannister TOP PRN (19:24)
[2023-09-06] MEDS ORDERED: Aluminum Hydroxide/Magnesium Hydroxide/Simethicone Susp 30 ML Cup PO PRN (19:24)
[2023-09-06] MEDS ORDERED: Oxytocin/Lactated Ringers 10 UNIT/1,000 ML BAG IV SCH ×2 (19:30→22:30)
[2023-09-06] MEDS ORDERED: Ibuprofen 600 MG Tab PO SCH (19:30)
[2023-09-07] MEDS: Sodium Chloride 0.9% 10 ML Syringe FLUSH SCH ×2 (04:16→17:19)
[2023-09-07] MEDS: Ibuprofen 600 MG Tab PO SCH ×4 (05:16→21:04)
[2023-09-07 05:36] LABS: HEMATOCRIT 32.2 % (37.0-47.0); MEAN CORPUSCULAR HEMOGLOBIN 29.8 pg (28.0-32.0); MEAN CORPUSCULAR HGB CONC 34.5 g/dl (32.0-36.0); MEAN CORPUSCULAR VOLUME 86.6 fl (83.0-99.0); MEAN PLATELET VOLUME 10.3 fl (9.4-12.3); RED BLOOD CELL COUNT 3.72 M/mm3 (4.10-5.30); WHITE BLOOD CELL COUNT,WBC 13.37 K/mm3 (3.9-11.3)
[2023-09-07 05:43] LABS: HEMOGLOBIN 11.1 gm/dl (12.0-16.0); PLATELET COUNT,PLT 258 K/mm3 (150-400)
[2023-09-08] MEDS: Sodium Chloride 0.9% 10 ML Syringe FLUSH SCH ×2 (04:16→09:05)
[2023-09-08] MEDS: Ibuprofen 600 MG Tab PO SCH ×3 (04:24→14:53)
[2023-09-08] MEDS ORDERED: Measles, Mumps & Rubella Vaccine 0.5 ML SDV SUBCUT ONE (08:48)
[2023-09-08 15:30] VITALS: BP 119/80; PULSE 82
== END 2023-09-08 15:30 | disposition home or self-care (01) | DRG 807 ==
LOC: JD.OBCHECK 18:17 → JD.OB 18:17 → JD.OBCHECK 18:50 → JD.OB 18:51 → OBSVTOIN 18:52 → JD.OB 18:53
PROVIDERS: ADMIT Obstetrics & Gynecology; ATTEND Obstetrics & Gynecology
PROC: 10E0XZZ Delivery of Products of Conception, External Approach (ICD-10-PCS; principal; 2023-09-06)
DX: O42.02 Full-term premature rupture of membranes, onset of labor within 24 hours of rupture (principal); O62.3 Precipitate labor; O69.81X0 Labor and delivery complicated by cord around neck, without compression, not applicable or unspecified; Z37.0 Single live birth; Z3A.38 38 weeks gestation of pregnancy
CPT/HCPCS: 36415; 59025; 59409; 85025; 85027; 86592; 86900; 86901; 90471; 90707; A9270-GY; J2590; J7120